=== PATIENT | male | born 1965 | race Caucasian/White ===

== ENCOUNTER → 2016-07-16 | Day surgery (SDC) | payer MEDICARE, OTHER, MEDICAID ==
[~2016-07-16] VITALS: Ht 165.1 cm; Wt 83.7 kg
[~2016-07-16] MED LIST: AMARYL2 MG PO; BAG BALM TOP; CARAFATE1 GM PO; EAR DROPS15 ML OTIC; FLOMAX0.4 MG PO; FLONASE 50 MCG/16 GM NOSE; LEVAQUIN500 MG PO; LIPITOR20 M1 PO; LUTEIN10 MG PO; NEXIUM40 MG PO; OCUVITE SOFTGE1 EACH PO; PYRIDIUM100 MG PO; RISPERIDONE PO; SYSTANE BALANCE10 ML OPHTH; THIORIDAZINE H100 MG PO; TOVIAZ8 MG PO; TYLENOL EXTRA500 MG PO; ZYRTEC10 MG PO
--- NOTE | ~2016-07-16 | OR ---
PATIENT'S NAME: SANG OSORIO [facility] AGE: 51 Y [address] ROOM: [place] [address] LOCATION: [facility] [place] ADMIT DATE: 07/16/2016 OR/Procedure Report DISCHARGE DATE: FAMILY PHYSICIAN: Sang Ruiz MD ATTENDING PHYSICIAN: JESSICA BRISENO SURGEON: Jessica Briseno MD TILE INSPECTOR: None. DATE OF PROCEDURE: 07/16/2016 PREOPERATIVE DIAGNOSES: 1. Urinary retention. 2. Benign prostatic hyperplasia with bladder outlet obstruction. 3. Nocturnal enuresis. 4. Possible neurogenic bladder. POSTPROCEDURE DIAGNOSES: 1. Urinary retention. 2. Benign prostatic hyperplasia with bladder outlet obstruction. 3. Nocturnal enuresis. 4. Possible neurogenic bladder. OPERATION PERFORMED: Cystoscopy with UroLift procedure (prostatic urethral lift). ANESTHESIA: Monitored anesthesia care. INDICATIONS FOR PROCEDURE: The patient is a pleasant, 51-year-old male with history of benign prostatic hyperplasia with urinary retention. He has also had additional symptoms including nocturnal enuresis despite taking both tamsulosin and Toviaz 8 mg daily. The family was explained the risks, benefits, indications, and alternatives to the above procedure, wished to proceed, and consented freely. DESCRIPTION OF OPERATION: The patient was brought back to the operating room where he was placed on the OR table in the supine position. A surgical time- out was called where patient identification, surgical site, and procedure were then verified. We also did verify that the patient received an IV Levaquin antibiotic within an hour of beginning the procedure. The patient then underwent successful administration of monitored anesthesia care. The patient was then moved and placed in a low lithotomy position. After his genital area again was prepped and draped sterilely, I began by advancing the 20-Sami cystoscope sheath with long bridge and 0 degree lens per urethra. His anterior urethra was within normal limits. His posterior urethra was notable for [id number] bilobar hyperplasia of the prostate. Upon entry into his bladder, full villarreal cystoscopy was performed. His bladder was negative for PATIENT'S NAME: SANG OSORIO [facility] AGE: 51 Y [address] ROOM: [place] [address] LOCATION: [facility] [place] ADMIT DATE: 07/16/2016 OR/Procedure Report DISCHARGE DATE: FAMILY PHYSICIAN: Sang Ruiz MD ATTENDING PHYSICIAN: JESSICA BRISENO any bladder tumors, cellules, or diverticula. He did have 2+ bladder trabeculation noted throughout. His ureteral orifices were noted to be in their orthotopic locations. The cystoscope bridge was then replaced with the UroLift implant delivery device. The first treatment site was the patient's right side, approximately 1.5 cm distal to the bladder neck. The distal tip of the delivery device was then angled laterally approximately 20 degrees at this position to compress the lateral lobe. The trigger was pulled, thereby deploying a needle containing the implant through the prostate. The needle was then retracted, allowing one end of the implant to be delivered to the capsular surface of the prostate. The implant was then tensioned to assure capsular seating and removal of slack monofilament. The device was then angled back toward midline and slowly advanced proximally until verification with cystoscopy of the monofilament being centered in the delivery bay. With the final triggering, the urethral endpiece was then affixed to the monofilament, thereby tailoring the size and tension of the implant. Excess filament was severed with this maneuver. The device was then readvanced into the bladder. The opening effect from the implant placement was confirmed with cystoscopy. The above identical sequence was then repeated on the patient's left side. I then reinspected for successful placement of each implant as well as the degree of lateral lobe obstruction remaining. Two additional implants were delivered just proximal to the verumontanum in the same fashion, again one on the patient's right side, and one on the left. There was still some persistent obstruction noted at the mid prostate which required placement of 2 additional implants bilaterally. A total of 6 implants was delivered successfully. A final cystoscopy was then performed to inspect the location and state of each implant to assure proper seating and location. Final inspection also revealed a patent prostatic urethra with irrigation flow turned off. I did leave approximately 200 mL of irrigation fluid in the bladder to assist the patient with his voiding trial. I then removed the cystoscope, and the patient was then taken out of the lithotomy position. He did tolerate the procedure well. He was awoken from monitored anesthesia care, transferred to the recovery bed, and transported to the recovery room in good condition. COMPLICATIONS: None. DRAINS: None. ESTIMATED BLOOD LOSS: Minimal. FOLLOWUP PLAN: We will plan to have the patient undergo a voiding trial today in Recovery prior to discharge home. If he passes his trial of void, we will plan to see him back in my outreach clinic in [place], [place], in approximately 3 to 4 weeks. PATIENT'S NAME: SANG OSORIO [facility] AGE: 51 Y [address] ROOM: [place] [address] LOCATION: [facility] [place] ADMIT DATE: 07/16/2016 OR/Procedure Report DISCHARGE DATE: FAMILY PHYSICIAN: Sang Ruiz MD ATTENDING PHYSICIAN: JESSICA BRISENO JESSICA BRISENO MD GP/modl /[id number] CC: Sang Ruiz MD d: 07/16/16 1328 t: 07/19/16 1112, OPERATIVE SUMMARY
[2016-07-16 08:16] LABS: BASOPHIL % 0.5 %; EOSINOPHIL # 0.1 K/uL (0.0-0.5); EOSINOPHIL % 1.5 %; HEMATOCRIT 42.8 % (37.0-53.0); IMMATURE GRANULOCYTE % 0.4 %; LYMPHOCYTE % 24.2 %; MCH 31.5 pg (27.0-34.0); MCV 89.9 fl (83.0-98.0); MONOCYTE # 0.5 K/uL (0.0-1.0); MONOCYTE % 5.6 %; MPV 8.7 fl (9.4-12.4); NEUTROPHIL # (ANC) 5.7 K/uL (1.4-9.0); NEUTROPHIL % 67.8 %; NRBC % 0 /100WBC (0-0.00); PLATELET COUNT 255 K/uL (150-450); RBC 4.76 M/uL (4.00-6.00); RDW-CV 13.2 % (11.9-14.6); WBC 8.4 K/uL (4.0-11.0)
[2016-07-16 08:33] LABS: ALBUMIN 4.1 gm/dL (3.5-5.0); ALK PHOS 64 IU/L (33-138); ALT 35 IU/L (12-78); ANION GAP 11.1 (10.0-19.0); AST 19 IU/L (10-40); BLOOD UREA NITROGEN 8 mg/dL (6-24); CALCIUM 9.2 mg/dL (8.5-10.5); CHLORIDE 106 mMol/L (96-110); CO2 28 mMol/L (22-32); CREATININE 1.1 mg/dL (0.6-1.3); ESTIMATED GFR (MDRD EQUATION) > 60; POTASSIUM 4.1 mMol/L (3.7-5.1); SODIUM 141 mMol/L (135-145); TOTAL BILIRUBIN 0.7 mg/dL (0.0-1.5); TOTAL PROTEIN 7.6 g/dL (6.0-8.4)
== END | disposition disaster alternative care site (69) ==
LOC: GPOC 07-13 14:00 → GSDC 07:50 → GPOC 08:00
PROVIDERS: Urology
PROC: 0T7D8DZ Dilation of Urethra with Intraluminal Device, Via Natural or Artificial Opening Endoscopic (ICD-10-PCS; principal; 2016-07-16)
DX: N40.1 Benign prostatic hyperplasia with lower urinary tract symptoms (principal); R33.8 Other retention of urine; N13.8 Other obstructive and reflux uropathy; N39.44 Nocturnal enuresis; D50.9 Iron deficiency anemia, unspecified; E78.5 Hyperlipidemia, unspecified; E11.9 Type 2 diabetes mellitus without complications; K21.9 Gastro-esophageal reflux disease without esophagitis; M19.90 Unspecified osteoarthritis, unspecified site; R62.50 Unspecified lack of expected normal physiological development in childhood; Z90.49 Acquired absence of other specified parts of digestive tract; Z88.8 Allergy status to other drugs, medicaments and biological substances; Z98.890 Other specified postprocedural states
CPT/HCPCS: J1956; J2001; J2405; J7030; L8699